=== PATIENT | male | born 1960 | race Caucasian/White ===

== ENCOUNTER 2018-04-03 15:11 | Emergency (ER) | payer BC, OTHER ==
[~2018-04-03] VITALS: Ht 177.8 cm; Wt 77.1 kg
[2018-04-03] MEDS ORDERED: LISINOPRIL-HCT1 EACH PO (16:24)
[2018-04-03 16:33] LABS: BASOPHILS 0.4 % (0.0-2.0); EOSINOPHILS 1.1 % (0.0-3.0); HEMATOCRIT 39.9 % (42.0-52.0); HEMOGLOBIN 13.8 gm/dL (14.0-18.0); LYMPHOCYTES 32.6 % (24.0-44.0); MCH 31.4 pg (26.0-34.0); MCHC 34.6 g/dL (28.0-37.0); MCV 90.7 fL (80.0-100.0); MONOCYTES 11.3 % (1.0-8.0); PLATELET COUNT 274 thou/uL (150-400); POLYS 54.6 % (36.0-66.0); RDW 12.7 % (10.5-14.5); WBC 5.6 thou/uL (4.0-11.0)
[2018-04-03 16:43] LABS: PROTIME 10.3 Seconds (9.3-11.4)
[2018-04-03 16:48] LABS: CALCIUM 9.6 mg/dL (8.5-10.1); CREATININE 1.2 mg/dL (0.7-1.3); POTASSIUM 4.1 mmol/L (3.5-5.1)
[2018-04-03 20:55] VITALS: BP 150/85
--- NOTE | 2018-04-04 09:20 | EKG ---
[place] [address] [facility] [place] [address] ELECTROCARDIOGRAM REPORT Name: LETITIA GREGORY Room #: DEP [facility] [id number] ������������������ Admission: 04/03/18 ������������������ Attend Phys: Discharge: 04/03/18 ������������������ Date of : 64 Report #: [id number] ����������������������������������������������������������������� [id number] THIS REPORT FOR: //name// [facility] ED Test Date: 2018-04-03 Test Time: 19:52:24 Pat Name: LETITIA GREGORY Department: Room: Gender: Undergraduate Advisor: nisha : 1960 Requested By: Sorin Suero Order Number: [id number] MD: Clifton Valdez Measurements Intervals [place] Rate: 72 P: 17 [place]: 188 QRS: 12 QRSD: 80 T: 3 QT: 366 QTc: 401 Interpretive Statements Sinus rhythm Anteroseptal infarct, old No previous ECG available for comparison Electronically Signed On 04-04-2018 9:20:37 [employer] by Clifton Valdez [email or web address] ��������������������������������������������� <ELECTRONICALLY SIGNED> ���������������������������������������� By: Clifton Valdez MD, [facility] ��������������������������������������������� 04/04/18 0920 51 51 Clifton Valdez MD, FACC /EPI
== END 2018-04-03 20:56 | disposition home or self-care (01) ==
LOC: ER 15:11
PROVIDERS: Student in an Organized Health Care Education/Training Program
DX: R20.0 Anesthesia of skin (principal); R20.2 Paresthesia of skin